=== PATIENT | male | born 1980 | race Caucasian/White ===

== ENCOUNTER 2018-01-14 07:45 | Inpatient (IN) | payer OTHER ==
[~2018-01-14] VITALS: Ht 193 cm; Wt 84.5 kg
[2018-01-14] MEDS ORDERED: SODIUM CHLORIDE FLUSH 10ML SYR IVF ONE (08:00)
[2018-01-14 08:16] LABS: BASOPHILS # (AUTO) 0.04 x10^3/uL (0-0.1); BASOPHILS % (AUTO) 1 % (0-1); EOSINOPHILS # (AUTO) 0.21 x10^3/uL (0-0.4); EOSINOPHILS % (AUTO) 3 % (1-7); LYMPHOCYTES # (AUTO) 1.68 x10^3/uL (1-3.4); LYMPHOCYTES % (AUTO) 21 % (22-44); MD NO; MEAN CORPUSCULAR HEMOGLOBIN 31.5 pg (27.5-34.5); MEAN CORPUSCULAR HGB CONC 33.7 g/dL (33.2-36.2); MEAN CORPUSCULAR VOLUME 93.3 fL (81-97); MEAN PLATELET VOLUME 7.4 fL (7.4-10.4); MONOCYTES % (AUTO) 13 % (2-9); NEUTROPHILS # (AUTO) 5.19 x10^3/uL (1.8-6.8); NEUTROPHILS % (AUTO) 63 % (42-75); PLATELET COUNT 237 x10^3/uL (130-400); RED CELL DISTRIBUTION WIDTH 13.2 % (9.4-14.8)
[2018-01-14] MEDS ORDERED: FENTANYL PF 100 MCG/2ML ONE (08:24)
[2018-01-14] MEDS ORDERED: MIDAZOLAM 1 MG/ML, 5ML ONE (08:24)
[2018-01-14 08:25] LABS: INTERNATIONAL NORMALIZED RATIO 1.03 (0.93-1.1); PROTHROMBIN TIME 10.7 Seconds (9.6-11.5)
[2018-01-14] MEDS ORDERED: BIVALIRUDIN 250 MG ONE (08:25)
[2018-01-14] MEDS ORDERED: HEPARIN 1,000 UNITS/ML, 10ML ONE (08:25)
[2018-01-14] MEDS ORDERED: NITROGLYCERIN 5 MG/ML, 10ML ONE (08:25)
[2018-01-14] MEDS ORDERED: VERAPAMIL 2.5 MG/ML, 2ML ONE (08:25)
[2018-01-14] MEDS ORDERED: TICAGRELOR 90 MG TABLET ONE (08:25)
[2018-01-14] MEDS ORDERED: LIDOCAINE-MPF 2% ,5ML ONE (08:26)
[2018-01-14] MEDS ORDERED: LIDOCAINE/PF 1%, 30ML ONE (08:26)
[2018-01-14 08:28] LABS: ALBUMIN 3.7 g/dL (3.4-5.0); ANION GAP 5 mmol/L (5-15); CALCIUM 8.9 mg/dL (8.5-10.1); CHLORIDE 107 mmol/L (98-107)
[2018-01-14 08:33] LABS: ALANINE AMINOTRANSFERASE 31 U/L (12-78); ALKALINE PHOSPHATASE 52 U/L (45-117); BILIRUBIN,TOTAL 0.8 mg/dL (0.2-1.0); CREATININE 0.98 mg/dL (0.7-1.3)
[2018-01-14] MEDS ORDERED: DIPHENHYDRAMINE 50 MG/ML, 1ML ONE (08:49)
[2018-01-14] MEDS ORDERED: NITROGLYCERIN 0.4 MG/SPRAY SL PRN (09:00)
[2018-01-14] MEDS ORDERED: NITROGLYCERIN 0.4 MG BOTTLE (25 TABS) SL PRN (09:00)
[2018-01-14] MEDS ORDERED: morphine SULFATE 10 MG/ML, 1ML IV PRN (09:00)
[2018-01-14] MEDS: SODIUM CHLORIDE 0.9% 1,000 ML IV SCH ×2 (09:01→15:31)
[2018-01-14] MEDS: SODIUM CHLORIDE FLUSH 10ML SYR IVF SCH ×2 (09:22→22:05)
[2018-01-14 09:29] VITALS: BP 108/72
[2018-01-14 09:44] LABS: CHOL/HDL RATIO 4.8; LDL/HDL RATIO 3.1 (0.5-3.0)
[2018-01-14 13:05] VITALS: BP 112/74
[2018-01-14 21:40] VITALS: BP 105/70
[2018-01-14] MEDS ORDERED: ACETAMINOPHEN 325 MG TABLET PO PRN (23:00)
[2018-01-15] MEDS: SODIUM CHLORIDE 0.9% 1,000 ML IV SCH ×2 (01:01→08:13)
[2018-01-15 01:48] VITALS: BP 105/69
[2018-01-15 05:52] LABS: ALBUMIN 3.5 g/dL (3.4-5.0); ANION GAP 5 mmol/L (5-15); CALCIUM 8.9 mg/dL (8.5-10.1); CHLORIDE 109 mmol/L (98-107)
[2018-01-15] MEDS ORDERED: ASPIRIN 81 MG TABLET EC PO SCH (06:00)
[2018-01-15 07:52] VITALS: BP 111/73
[2018-01-15] MEDS: SODIUM CHLORIDE FLUSH 10ML SYR IVF SCH (08:14)
[2018-01-15] MEDS ORDERED: ASPI-621 PO (10:04)
== END 2018-01-15 13:55 | disposition home or self-care (01) | DRG 287 ==
LOC: ED 08:18 → EDIP 08:26 → 5SO 09:16 → DCLOUNGE 01-15 13:45
PROVIDERS: ADMIT Internal Medicine Cardiovascular Disease; ATTEND Internal Medicine Cardiovascular Disease
PROC: 4A023N7 Measurement of Cardiac Sampling and Pressure, Left Heart, Percutaneous Approach (ICD-10-PCS; principal; 2018-01-14)
PROC: B2111ZZ Fluoroscopy of Multiple Coronary Arteries using Low Osmolar Contrast (ICD-10-PCS; 2018-01-14)
PROC: B2151ZZ Fluoroscopy of Left Heart using Low Osmolar Contrast (ICD-10-PCS; 2018-01-14)
DX: R07.89 Other chest pain (principal); I45.10 Unspecified right bundle-branch block; R74.8 Abnormal levels of other serum enzymes; R94.31 Abnormal electrocardiogram [ECG] [EKG]; Z79.82 Long term (current) use of aspirin
CPT/HCPCS: 36415; 71045; 80047; 80048; 80053; 80061; 82040; 84484; 85025; 85610; 85730; 93005; 93306; 93458; 99156; 99285; C1769; C1894; J0583; J1644; J2250; J3010; J3490; J1200; Q9967